=== PATIENT | male | born 1945 | race Caucasian/White ===

== ENCOUNTER 2018-05-25 11:46 | Emergency (ER) | payer MEDICARE ==
[~2018-05-25] VITALS: Ht 185.4 cm; Wt 81.7 kg
[2018-05-25] MEDS ORDERED: ASPIRIN81 MG PO (13:48)
--- NOTE | 2018-05-25 21:38 | EKG ---
[facility] [address] [facility] [place] [address] Signed Atrial fibrillation Abnormal ECG No previous ECGs available Confirmed by EVANGELIST VIVAR MD ([id number] on 05/25/2018 9:38:09 PM Electronically Signed By: EVANGELIST VIVAR MD 05/25/18 [id number] PATIENT NAME: ENRIQUTEA SILVEIRA LEONARDA Electrocardiogram DATE OF : 47 PHYSICIAN: EVANGELIST VIVAR MD REPORT #: [id number] REPORT IS CONFIDENTIAL AND NOT TO BE RELEASED WITHOUT AUTHORIZATION
== END 2018-05-25 15:16 | disposition short-term general hospital (02) ==
LOC: ED 11:46 → EDBD 11:47 → ED 15:16
PROC: 0T9B70Z Drainage of Bladder with Drainage Device, Via Natural or Artificial Opening (ICD-10-PCS; principal; 2018-05-25)
DX: R41.82 Altered mental status, unspecified (principal)
CPT/HCPCS: 31720; 36600; 51702; 70450; 70496; 70498; 71045; 80053; 81001; 82803; 85025; 85610; 85730; 93005; 93010; 94002; 96374; 96375; 99285; G0480; J2704; J3010; J7120; Q9967